=== PATIENT | female | born 1975 | race Caucasian/White ===

== ENCOUNTER 2019-12-07 14:27 | Outpatient (REF) | payer BC, SELFPAY | END 2019-12-07 14:47 | LOC: NCHCN 14:27 | PROVIDERS: PCP Family Medicine; Visit Provider Nurse Practitioner Community Health | DX: J02.9 Acute pharyngitis, unspecified (principal) | CPT/HCPCS: 87077; 87070 ==

== ENCOUNTER 2019-12-18 11:58 | Outpatient (REF) | payer BC, SELFPAY ==
[2019-12-18 21:28] LABS: HCT 37.3 % (36.0-46.0); HGB 12.1 g/dL (12.0-15.5); Mean Corp. HGB Concentration 32.4 g/dL (32.0-36.0); Mean Corpuscular Hemoglobin 27.7 pg (27.0-33.0); Mean Corpuscular Volume 85.4 fL (80-95); Platelet Count 406 x1000/uL (130-400); RBC 4.37 m/cumm (4.00-5.20); RBC Distribution Width 14.2 % (11.7-14.6); White Blood Cell Count 7.65 k/cumm (4.4-10.8)
[2019-12-18 21:38] LABS: ALT 39 U/L (14-59); AST 19 U/L (15-37); Albumin 3.6 g/dL (3.4-5.0); Alkaline Phosphatase 119 U/L (46-116); Anion Gap 7.5 mmol/L (3-11); BUN 15 mg/dL (7-18); Bilirubin, Total 0.2 mg/dL (0.2-1.0); CO2 30.5 mmol/L (21.0-32.0); CREATININE 0.77 mg/dL (0.55-1.02); Calcium 9.6 mg/dL (8.5-10.1); Calculated LDL 93 mg/dL (<100); Chloride 102 mmol/L (98-107); Cholesterol 174 mg/dL (<200); Glucose 99 mg/dL (74-106); HDL Cholesterol 50 mg/dL (40-60); Potassium 5.1 mmol/L (3.5-5.1); Sodium 140 mmol/L (136-145); Total Protein 7.3 g/dL (6.4-8.2); Triglyceride 156 mg/dL (<150)
[2019-12-18 21:48] LABS: Hemoglobin A1C 6.1 % (3.8-5.6)
== END 2019-12-18 12:18 ==
LOC: NCHCN 11:58
PROVIDERS: PCP Family Medicine; Visit Provider Nurse Practitioner Community Health
DX: R50.9 Fever, unspecified (principal); R03.0 Elevated blood-pressure reading, without diagnosis of hypertension
CPT/HCPCS: 80053; 80061; 85027; 83036

== ENCOUNTER 2020-08-09 18:19 | Outpatient (REF) | payer MEDICAID, SELFPAY ==
[2020-08-13 15:39] LABS: SARS-CoV-2 RNA Undetected (Undetected); SARS-CoV-2 Specimen Source Nasal
== END 2020-08-09 18:39 ==
LOC: NCHCN 18:19
PROVIDERS: PCP Family Medicine; Visit Provider Family Medicine
DX: R19.7 Diarrhea, unspecified (principal)
CPT/HCPCS: U0003

== ENCOUNTER 2022-09-11 20:58 | Outpatient (REF) | payer MEDICAID, SELFPAY ==
[2022-09-11 21:36] LABS: ESR 32 mm/hr (0-20)
== END 2022-09-11 20:59 | disposition home or self-care (01) ==
LOC: NCHCN 20:58
PROVIDERS: PCP Family Medicine; Visit Provider Family Medicine
DX: H53.8 Other visual disturbances (principal)
CPT/HCPCS: 85652

== ENCOUNTER 2023-06-15 21:27 | Outpatient (REF) | payer MEDICAID, SELFPAY ==
[2023-06-15 21:31] LABS: COMMENT (LAB VIEW ONLY) 168.55 mg/dL
== END 2023-06-15 21:28 | disposition home or self-care (01) ==
LOC: NCHCN 21:27
PROVIDERS: PCP Family Medicine; Visit Provider Nurse Practitioner Family
DX: E11.9 Type 2 diabetes mellitus without complications (principal)
CPT/HCPCS: 82043; 82570

== ENCOUNTER 2024-09-18 09:06 | Outpatient (REF) | payer MEDICAID, SELFPAY ==
[2024-09-18 17:08] LABS: ALT 29 U/L (14-59); AST 16 U/L (15-37); Albumin 3.8 g/dL (3.4-5.0); Alkaline Phosphatase 111 U/L (46-116); Anion Gap 6.4 mmol/L (3-11); Bilirubin, Total 0.44 mg/dL (0.2-1.0); CO2 29.6 mmol/L (21.0-32.0); CREATININE 0.8 mg/dL (0.55-1.02); Calcium 9.5 mg/dL (8.5-10.1); Calculated LDL 119 mg/dL (<100); Chloride 101 mmol/L (98-107); Cholesterol 223 mg/dL (<200); Estimated GFR 89.71 (mL/min/1.73m2); Glucose 98 mg/dL (74-106); HDL Cholesterol 83 mg/dL (40-60); Magnesium 2.4 mg/dL (1.8-2.4); Potassium 4.5 mmol/L (3.5-5.1); Sodium 137 mmol/L (136-145); Total Protein 7.6 g/dL (6.4-8.2); Triglyceride 109 mg/dL (<150); Vitamin B12 430 pg/mL (193-986)
[2024-09-18 17:31] LABS: BUN 20 mg/dL (7-18)
== END 2024-09-18 09:07 | disposition home or self-care (01) ==
LOC: NCHCN 09:06
PROVIDERS: PCP Family Medicine; Visit Provider Nurse Practitioner Family
DX: E11.9 Type 2 diabetes mellitus without complications (principal); Z51.81 Encounter for therapeutic drug level monitoring
CPT/HCPCS: 80053; 80061; 82607; 83735